=== PATIENT | male | born 1935 | race Caucasian/White ===

== ENCOUNTER 2020-10-03 12:02 | Inpatient (IN) ==
[2020-10-03 12:35] LABS: Basophils % 0.2 % (0.0-0.8); Hematocrit 44.8 VOL% (42.0-52.0); Hemoglobin 14.2 GM/DL (14.0-18.0); Immature Granulocytes % 0.7 %; Immature Granulocytes Absolute 0.09 #; Lymphocytes # 0.6 10*3/uL (1.4-4.0); Mean Corpuscular HGB Conc 31.7 GM/DL (32-36); Mean Corpuscular Volume 106.7 FL (87-102); Mean Platelet Volume 10.8 FL (9.6-12.0); Monocytes % 6.2 % (1.7-12.7); Neutrophils % 87.9 % (38.7-73.9); Platelet Count 115 T/CUMM (130-400); Red Cell Distribution Width 14.6 % (9.3-17.3); White Blood Count 12.7 T/CUMM (4-12)
[2020-10-03] MEDS ORDERED: SODIUM CHLORIDE 0.9% 1,000 ML IV STA ×3 (12:58→13:56)
[2020-10-03] MEDS ORDERED: DILTIAZEM 50 MG/10 ML VIAL IV STA (13:19)
[2020-10-03 13:20] LABS: Albumin 3.8 G/DL (3.4-5.0); Bilirubin,Total 1.4 MG/DL (0.2-1.0); Calcium 9.2 MG/DL (8.5-10.1); Osmolality,Calculated 304.5 MOS/KG (273-304); Potassium 4.5 MMOL/L (3.5-5.1); Total Protein 6.2 G/DL (6.4-8.2)
[2020-10-03] MEDS ORDERED: GLUCAGON 1 MG VIAL IM PRN (14:31)
[2020-10-03] MEDS ORDERED: BISACODYL 5 MG TABLET PO PRN (14:31)
[2020-10-03] MEDS ORDERED: ACETAMINOPHEN 325 MG TABLET PO PRN (14:31)
[2020-10-03] MEDS ORDERED: ALBUTEROL 2.5 MG/3 ML NEB RESP TX PRN (14:31)
[2020-10-03] MEDS ORDERED: ONDANSETRON 4 MG/2 ML VIAL IV PRN (14:31)
[2020-10-03] MEDS ORDERED: DEXTROSE 50% 25 GM/50 ML VIAL IV PRN (14:31)
[2020-10-03] MEDS ORDERED: guaiFENesin/DM ER 600-30 MG TABLET PO PRN (14:31)
[2020-10-03] MEDS: cefTRIAXone 1,000 MG in SODIUM CHLORIDE 0.9% 100 ML IV SCH (14:36)
[2020-10-03] MEDS ORDERED: cefTRIAXone 1,000 MG in SODIUM CHLORIDE 0.9% 100 ML IV STA (14:40)
[2020-10-03 14:43] LABS: Bilirubin,Urine Negative (Negative); Blood, Urine Moderate mg/dL (Negative); Glucose,Urine (UA) Negative (Negative); Hyaline Casts,Urine 1 /LPF (0-3); Ketones,Urine 5 mg/dL (Negative); Mucus,Urine Occasional /LPF (Occasional); Nitrite,Urine Negative (Negative); Protein,Urine 30 MG/DL; RBC,Urine 1 /HPF (0-4); Squamous Epithelial Cell,Urine Occasional /HPF (0-10); Urine Appearance CLEAR (Clear); Urine Color Yellow (Yellow); Urine Specific Gravity 1.025 (1.001-1.035); Urine Urobilinogen < 2.0 EU/DL (0.2-1.0)
[2020-10-03] MEDS ORDERED: DILTIAZEM INJ 100 MG in SODIUM CHLORIDE 0.9% 100 ML IV SCH (15:00)
[2020-10-03] MEDS: AZITHROMYCIN INJ 500 MG in SODIUM CHLORIDE 0.9% 250 ML IV SCH (15:04)
[2020-10-03 15:25] LABS: Free T4 (Free Thyroxine) 0.88 NG/DL (0.76-1.46); Thyroid Stimulating Hormone 4.77 uIU/ml (0.358-3.74)
[2020-10-03 17:10] LABS: PT Patient Result > 178.9 SECS (10.5-12.0)
[2020-10-03] MEDS ORDERED: SODIUM CHLORIDE 0.9% 1,000 ML IV PRN (17:50)
[2020-10-03] MEDS: carvediloL 3.125 MG TABLET PO SCH ×2 (17:51→20:34)
[2020-10-03] MEDS ORDERED: PHYTONADIONE 5 MG/5 ML ORAL.SYR PO ONE (18:30)
[2020-10-04] MEDS: SODIUM CHLORIDE 0.9% 1,000 ML IV SCH ×2 (03:50→04:32)
[2020-10-04 06:14] LABS: Hematocrit 33.6 VOL% (42.0-52.0); Hemoglobin 10.6 GM/DL (14.0-18.0); Immature Granulocytes % 0.7 %; Immature Granulocytes Absolute 0.04 #; Lymphocytes # 0.5 10*3/uL (1.4-4.0); Lymphocytes % 9.1 % (21.2-54.2); Mean Corpuscular HGB Conc 31.5 GM/DL (32-36); Mean Platelet Volume 10.9 FL (9.6-12.0); Monocytes % 7.2 % (1.7-12.7); Platelet Count 89 T/CUMM (130-400); Red Blood Count 3.14 MC/CUMM (3.8-5.5); Red Cell Distribution Width 14.6 % (9.3-17.3); White Blood Count 5.4 T/CUMM (4-12)
[2020-10-04 06:43] LABS: Calcium 8.4 MG/DL (8.5-10.1); Osmolality,Calculated 302.8 MOS/KG (273-304); Potassium 4.1 MMOL/L (3.5-5.1)
[2020-10-04 06:48] LABS: Risk Ratio 3.31; VLDL CHOLESTEROL 18.8 MG/DL
[2020-10-04 06:48] LABS: Band Neutrophils 2 % (0-10); Hypochromasia Slight; Lymphocytes 6 % (20-55); Segmented Neutrophils 86 % (50-85); Total Cells Counted 100
[2020-10-04 06:49] LABS: Microcytosis 1+; Ovalocytes Slight
[2020-10-04 06:50] LABS: Platelet Estimate Decreased
[2020-10-04] MEDS: carvediloL 3.125 MG TABLET PO SCH (08:17)
[2020-10-04] MEDS: ASPIRIN EC 81 MG TABLET PO SCH (08:17)
[2020-10-04] MEDS: SIMVASTATIN 20 MG TABLET PO SCH (08:17)
[2020-10-04 08:40] LABS: INR > 17.6
[2020-10-04] MEDS ORDERED: FUROSEMIDE 40 MG/4 ML VIAL IV SCH (09:00)
[2020-10-04 09:15] LABS: PT Patient Result 30.6 SECS (10.5-12.0)
[2020-10-04 09:51] LABS: INR 2.6
[2020-10-04 09:55] LABS: PT Patient Result 26.8 SECS (10.5-12.0)
[2020-10-04] MEDS: LOSARTAN 25 MG TABLET PO SCH (13:57)
[2020-10-04] MEDS: cefTRIAXone 1,000 MG in SODIUM CHLORIDE 0.9% 100 ML IV SCH (14:31)
[2020-10-04] MEDS: AZITHROMYCIN INJ 500 MG in SODIUM CHLORIDE 0.9% 250 ML IV SCH (15:05)
[2020-10-04] MEDS: WARFARIN 2.5 MG TABLET PO SCH (17:28)
[2020-10-04] MEDS: carvediloL 6.25 MG TABLET PO SCH (21:41)
[2020-10-04] MEDS: MENTHOL/ZINC OXIDE OINT 71 GM JAR TOP SCH (21:42)
[2020-10-05 06:04] LABS: Eosinophils % 0.5 % (0.00-10.9); Hematocrit 35.4 VOL% (42.0-52.0); Hemoglobin 11.2 GM/DL (14.0-18.0); Immature Granulocytes % 0.9 %; Immature Granulocytes Absolute 0.05 #; Lymphocytes # 0.4 10*3/uL (1.4-4.0); Lymphocytes % 7.1 % (21.2-54.2); Mean Corpuscular HGB Conc 31.6 GM/DL (32-36); Mean Corpuscular Volume 108.6 FL (87-102); Mean Platelet Volume 10.4 FL (9.6-12.0); Monocytes % 5.7 % (1.7-12.7); Neutrophils % 85.8 % (38.7-73.9); Platelet Count 97 T/CUMM (130-400); Red Blood Count 3.26 MC/CUMM (3.8-5.5); Red Cell Distribution Width 14.4 % (9.3-17.3); White Blood Count 5.6 T/CUMM (4-12)
[2020-10-05 06:12] LABS: INR 1.4; PT Patient Result 14.8 SECS (10.5-12.0)
[2020-10-05 06:21] LABS: Calcium 8.5 MG/DL (8.5-10.1); Osmolality,Calculated 296.8 MOS/KG (273-304); Potassium 4.1 MMOL/L (3.5-5.1)
[2020-10-05] MEDS ORDERED: ERGOCALCIFEROL 50,000 UNIT CAPSULE PO SCH (07:30)
[2020-10-05 07:44] LABS: Anisocytosis Slight; Macrocytosis 1+; Platelet Estimate Decreased
[2020-10-05] MEDS: ASPIRIN EC 81 MG TABLET PO SCH (08:58)
[2020-10-05] MEDS: carvediloL 6.25 MG TABLET PO SCH ×2 (08:58→22:08)
[2020-10-05] MEDS: SIMVASTATIN 20 MG TABLET PO SCH (08:58)
[2020-10-05] MEDS: LOSARTAN 25 MG TABLET PO SCH (08:58)
[2020-10-05] MEDS: HEPARIN DRIP 25,000 UNITS/500 ML PREMIX IV SCH (09:07)
[2020-10-05] MEDS: MENTHOL/ZINC OXIDE OINT 71 GM JAR TOP SCH ×2 (09:12→22:08)
[2020-10-05] MEDS: SACUBITRIL/VALSARTAN 49-51 MG TABLET PO SCH (13:58)
[2020-10-05] MEDS: cefTRIAXone 1,000 MG in SODIUM CHLORIDE 0.9% 100 ML IV SCH (13:58)
[2020-10-05] MEDS: AZITHROMYCIN INJ 500 MG in SODIUM CHLORIDE 0.9% 250 ML IV SCH (14:33)
[2020-10-05] MEDS: WARFARIN 2.5 MG TABLET PO SCH (17:15)
[2020-10-05] MEDS: ZALEPLON 5 MG CAPSULE PO PRN (22:07)
[2020-10-06 05:59] LABS: Basophils % 0.2 % (0.0-0.8); Eosinophils # 0.1 10*3/uL (0.0-0.87); Eosinophils % 1.1 % (0.00-10.9); Hematocrit 36.4 VOL% (42.0-52.0); Hemoglobin 11.8 GM/DL (14.0-18.0); Immature Granulocytes % 1.1 %; Immature Granulocytes Absolute 0.09 #; Lymphocytes # 0.4 10*3/uL (1.4-4.0); Lymphocytes % 4.9 % (21.2-54.2); Mean Corpuscular HGB Conc 32.4 GM/DL (32-36); Mean Corpuscular Volume 104.3 FL (87-102); Mean Platelet Volume 10.6 FL (9.6-12.0); Monocytes % 5.5 % (1.7-12.7); Neutrophils % 87.2 % (38.7-73.9); Platelet Count 101 T/CUMM (130-400); Red Blood Count 3.49 MC/CUMM (3.8-5.5); Red Cell Distribution Width 14.1 % (9.3-17.3); White Blood Count 8.4 T/CUMM (4-12)
[2020-10-06 06:05] LABS: INR 1.4; PT Patient Result 15.6 SECS (10.5-12.0)
[2020-10-06 06:12] LABS: Calcium 8.3 MG/DL (8.5-10.1); Potassium 3.7 MMOL/L (3.5-5.1)
[2020-10-06 06:52] LABS: Band Neutrophils 4 % (0-10); Eosinophils 1 % (0-10); Lymphocytes 7 % (20-55); Segmented Neutrophils 86 % (50-85); Total Cells Counted 100
[2020-10-06 06:53] LABS: Anisocytosis Slight; Macrocytosis 1+; Platelet Estimate Adequate
[2020-10-06] MEDS: ASPIRIN EC 81 MG TABLET PO SCH (08:31)
[2020-10-06] MEDS: SIMVASTATIN 20 MG TABLET PO SCH (08:31)
[2020-10-06] MEDS: carvediloL 6.25 MG TABLET PO SCH ×2 (08:31→23:35)
[2020-10-06] MEDS: SACUBITRIL/VALSARTAN 49-51 MG TABLET PO SCH (08:31)
[2020-10-06] MEDS: MENTHOL/ZINC OXIDE OINT 71 GM JAR TOP SCH ×2 (08:59→23:37)
[2020-10-06] MEDS ORDERED: WARFARIN 5 MG TABLET PO ONE (09:26)
[2020-10-06] MEDS ORDERED: ALBUTEROL/IPRATROPIUM 3 ML NEB RESP TX ONE (10:00)
[2020-10-06] MEDS: cefTRIAXone 1,000 MG in SODIUM CHLORIDE 0.9% 100 ML IV SCH (13:30)
[2020-10-06] MEDS: AZITHROMYCIN INJ 500 MG in SODIUM CHLORIDE 0.9% 250 ML IV SCH (14:11)
[2020-10-06] MEDS: HEPARIN DRIP 25,000 UNITS/500 ML PREMIX IV SCH (14:11)
[2020-10-06] MEDS: FUROSEMIDE 40 MG/4 ML VIAL IV SCH (17:38)
[2020-10-06] MEDS: WARFARIN 2.5 MG TABLET PO SCH (17:38)
[2020-10-06] MEDS: ACETYLCYSTEINE 20% 800 MG/4 ML VIAL RESP TX SCH (23:23)
[2020-10-06] MEDS: ZALEPLON 5 MG CAPSULE PO PRN (23:35)
[2020-10-07 05:56] LABS: Basophils % 0.2 % (0.0-0.8); Eosinophils % 0.1 % (0.00-10.9); Hematocrit 38.6 VOL% (42.0-52.0); Hemoglobin 12.8 GM/DL (14.0-18.0); Immature Granulocytes % 1.6 %; Immature Granulocytes Absolute 0.17 #; Lymphocytes # 0.5 10*3/uL (1.4-4.0); Lymphocytes % 4.7 % (21.2-54.2); Mean Corpuscular HGB Conc 33.2 GM/DL (32-36); Mean Corpuscular Volume 104.3 FL (87-102); Mean Platelet Volume 10.1 FL (9.6-12.0); Monocytes % 4.3 % (1.7-12.7); Neutrophils % 89.1 % (38.7-73.9); Platelet Count 164 T/CUMM (130-400); Red Cell Distribution Width 14.2 % (9.3-17.3); White Blood Count 10.8 T/CUMM (4-12)
[2020-10-07 06:04] LABS: INR 1.9; PT Patient Result 19.8 SECS (10.5-12.0)
[2020-10-07 06:11] LABS: Partial Thromboplastin Time 56.1 SECS (23.9-33.8)
[2020-10-07 06:23] LABS: Hypochromasia Slight; Microcytosis 1+; Ovalocytes Slight; Platelet Estimate Adequate
[2020-10-07 06:30] LABS: Calcium 8.7 MG/DL (8.5-10.1); Osmolality,Calculated 289.3 MOS/KG (273-304); Potassium 4.3 MMOL/L (3.5-5.1)
[2020-10-07] MEDS: ACETYLCYSTEINE 20% 800 MG/4 ML VIAL RESP TX SCH ×2 (07:30→14:00)
[2020-10-07] MEDS ORDERED: WARFARIN 7.5 MG TABLET PO ONE (08:03)
[2020-10-07] MEDS ORDERED: SACUBITRIL/VALSARTAN 49-51 MG TABLET PO SCH (09:00)
[2020-10-07] MEDS: ASPIRIN EC 81 MG TABLET PO SCH (09:21)
[2020-10-07] MEDS: FUROSEMIDE 40 MG/4 ML VIAL IV SCH ×2 (09:21→16:38)
[2020-10-07] MEDS: carvediloL 12.5 MG TABLET PO SCH ×2 (09:22→20:17)
[2020-10-07] MEDS: SIMVASTATIN 20 MG TABLET PO SCH (09:22)
[2020-10-07] MEDS: SACUBITRIL/VALSARTAN 49-51 MG TABLET PO SCH (09:22)
[2020-10-07] MEDS: SPIRONOLACTONE 25 MG TABLET PO SCH (09:22)
[2020-10-07] MEDS: HEPARIN DRIP 25,000 UNITS/500 ML PREMIX IV SCH ×2 (09:23→16:37)
[2020-10-07] MEDS: MENTHOL/ZINC OXIDE OINT 71 GM JAR TOP SCH ×2 (09:24→20:17)
[2020-10-07] MEDS: cefTRIAXone 1,000 MG in SODIUM CHLORIDE 0.9% 100 ML IV SCH (14:22)
[2020-10-07] MEDS: AZITHROMYCIN INJ 500 MG in SODIUM CHLORIDE 0.9% 250 ML IV SCH (14:22)
[2020-10-07] MEDS: methylPREDNISolone SOD SUC 40 MG/1 ML VIAL IV SCH (16:38)
[2020-10-07] MEDS: WARFARIN 2.5 MG TABLET PO SCH ×2 (16:38→17:08)
[2020-10-08] MEDS: ACETYLCYSTEINE 20% 800 MG/4 ML VIAL RESP TX SCH ×5 (02:34→23:00)
[2020-10-08] MEDS: methylPREDNISolone SOD SUC 40 MG/1 ML VIAL IV SCH ×2 (03:15→14:47)
[2020-10-08 06:07] LABS: Basophils % 0.1 % (0.0-0.8); Hematocrit 38.8 VOL% (42.0-52.0); Hemoglobin 12.5 GM/DL (14.0-18.0); Immature Granulocytes % 1.4 %; Immature Granulocytes Absolute 0.13 #; Lymphocytes # 0.4 10*3/uL (1.4-4.0); Lymphocytes % 4.1 % (21.2-54.2); Mean Corpuscular HGB Conc 32.2 GM/DL (32-36); Mean Corpuscular Volume 105.7 FL (87-102); Mean Platelet Volume 10.6 FL (9.6-12.0); Monocytes % 3.3 % (1.7-12.7); Neutrophils % 91.1 % (38.7-73.9); Platelet Count 160 T/CUMM (130-400); Red Blood Count 3.67 MC/CUMM (3.8-5.5); Red Cell Distribution Width 14.4 % (9.3-17.3); White Blood Count 9.6 T/CUMM (4-12)
[2020-10-08 06:11] LABS: INR 4.3; PT Patient Result 43.8 SECS (10.5-12.0)
[2020-10-08 06:34] LABS: Calcium 8.8 MG/DL (8.5-10.1); Osmolality,Calculated 293.1 MOS/KG (273-304); Potassium 4.1 MMOL/L (3.5-5.1)
[2020-10-08 06:37] LABS: Lymphocytes 2 % (20-55); Platelet Estimate Adequate; Segmented Neutrophils 94 % (50-85); Total Cells Counted 100
[2020-10-08 06:38] LABS: Hypochromasia Slight; Microcytosis Slight
[2020-10-08] MEDS: SACUBITRIL/VALSARTAN 49-51 MG TABLET PO SCH (09:37)
[2020-10-08] MEDS: FUROSEMIDE 40 MG/4 ML VIAL IV SCH ×2 (09:37→15:22)
[2020-10-08] MEDS: carvediloL 12.5 MG TABLET PO SCH ×2 (09:38→20:40)
[2020-10-08] MEDS: SIMVASTATIN 20 MG TABLET PO SCH (09:38)
[2020-10-08] MEDS: ASPIRIN EC 81 MG TABLET PO SCH (09:38)
[2020-10-08] MEDS: MENTHOL/ZINC OXIDE OINT 71 GM JAR TOP SCH ×2 (09:38→20:38)
[2020-10-08] MEDS: SPIRONOLACTONE 25 MG TABLET PO SCH (09:38)
[2020-10-08] MEDS: AZITHROMYCIN INJ 500 MG in SODIUM CHLORIDE 0.9% 250 ML IV SCH (14:47)
[2020-10-08] MEDS: cefTRIAXone 1,000 MG in SODIUM CHLORIDE 0.9% 100 ML IV SCH (14:47)
[2020-10-09] MEDS: methylPREDNISolone SOD SUC 40 MG/1 ML VIAL IV SCH (03:58)
[2020-10-09 06:25] LABS: INR 6.1
[2020-10-09] MEDS: ACETYLCYSTEINE 20% 800 MG/4 ML VIAL RESP TX SCH (07:41)
[2020-10-09] MEDS: SIMVASTATIN 20 MG TABLET PO SCH (08:14)
[2020-10-09] MEDS: SACUBITRIL/VALSARTAN 49-51 MG TABLET PO SCH (08:14)
[2020-10-09] MEDS: ASPIRIN EC 81 MG TABLET PO SCH (08:14)
[2020-10-09] MEDS: carvediloL 12.5 MG TABLET PO SCH (08:14)
[2020-10-09] MEDS: FUROSEMIDE 40 MG/4 ML VIAL IV SCH (08:14)
[2020-10-09] MEDS ORDERED: SPIRONOLACTONE 25 MG TABLET PO SCH (09:00)
[2020-10-09] MEDS: MENTHOL/ZINC OXIDE OINT 71 GM JAR TOP SCH (09:10)
[2020-10-09 11:11] LABS: PT Patient Result 57.4 SECS (10.5-12.0)
[2020-10-09 11:13] LABS: INR 5.8
[2020-10-09 12:01] VITALS: BP 114/56
[2020-10-09] MEDS ORDERED: SACUBITRIL/VALSARTAN 49-51 MG TABLET PO SCH (21:00)
== END 2020-10-09 15:25 | disposition swing bed (61) | DRG 871 ==
LOC: N.ED 12:02 → N.EDINP 14:31 → N.TELES 15:48
PROVIDERS: ADMIT Internal Medicine; ATTEND Internal Medicine